=== PATIENT | female | born 1975 | race Caucasian/White ===

== ENCOUNTER 2018-01-02 18:25 | Inpatient (IN) | payer OTHER ==
[~2018-01-02] VITALS: Ht 175.3 cm; Wt 97.1 kg
--- NOTE | 2018-01-02 18:54 | ED GENERAL ADULT ---
History of Present Illness General Chief Complaint: Psychiatric Related Complaint Stated Complaint: +SI Source: patient Exam Limitations: no limitations Vital Signs & Intake/Output Vital Signs & Intake/Output Vital Signs Date Time Temp Pulse Resp B/P B/P Pulse O2 O2 Flow FiO2 Mean Ox Delivery Rate 01/03 2255 98.3 64 104/59 98 Room Air 01/03 2026 98.4 58 128/75 97 Room Air 01/03 1715 98.5 52 121/71 99 Room Air 01/03 1134 98.2 72 19 124/68 96 Room Air 01/03 0835 97.3 58 18 114/65 97 Room Air Room Air 01/03 0605 97.3 52 16 122/73 96 Room Air Allergies Coded Allergies: latex (Severe, DIFFICULTY BREATHING 01/02/18) Reconcile Medications Albuterol Sulfate (Proair Hfa) 90 MCG HFA.AER.AD 2 PUF INH Q4-6 PRN PRN ASTHMA (Reported) Budesonide/Formoterol Fumarate (Symbicort 160-4.5 Mcg Inhaler) 160 MCG-4.5 MCG/ ACTUATION HFA.AER.AD 2 PUF INH BID ASTHMA (Reported) Divalproex Sodium (Divalproex Sodium ER) 500 MG TAB.ER.24H 2 TAB PO QPM SZ ( Reported) Levothyroxine Sodium 125 MCG TABLET 1 TAB PO DAILY THYROID (Reported) Lorazepam 1 MG TABLET 1 TAB PO DAILY ANXIETY (Reported) Meloxicam 15 MG TABLET 1 TAB PO DAILY PAIN (Reported) Sertraline HCl 50 MG TABLET 1 TAB PO DAILY ANXIETY (Reported) Topiramate 50 MG TABLET 2 TAB PO DAILY ANXIETY (Reported) Trazodone HCl 100 MG TABLET 1 TAB PO QPM SLEEP (Reported) Triage Note: PT TO ED FOR C/C OF +SI THOUGHTS WITHOUT PLAN. PT REPORTS SHE SEES AN OUTPATIENT PSYCHIATRIST AND IS NOT HAPPY WITH RECENT MED CHANGE. PT REPORTS NEW DOSE OF DEPAKOTE. OVER THE LAST COUPLE OF DAYS PT HAS BEEN FEELING SUICIDAL, "BUT I KNOW I'M THE KIND OF PERSON WHO WOULD NEVER DO ANYTHING ABOUT IT." PT REPORTS SHE FEELS VERY OUT OF IT AND FEELS "OFF BALANCE." Triage Nurses Notes Reviewed? yes Onset: Gradual Duration: day(s): Timing: constant : No Patient currently breastfeeds: No HPI: 42 y/o female with h/o bipolar disorder presenting with SI. Reports recent manic episodes and feeling "off balance." Saw her outpatient psychiatrist and was started on depakote 3 weeks ago. Reports she has not been taking the full prescribed dose. Now with SI thoughts over the past few days, no plan or attempts. Denies HI. Denies ETOH or drug use. Denies pain or trauma. (Kaelyn Campbell) Past History Travel History Traveled to [place] past 21 day No Medical History Any Pertinent Medical History? 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 No (Kaelyn Campbell) Review of Systems Review of Systems Constitutional: Reports: no symptoms. EENTM: Reports: no symptoms. Respiratory: Reports: no symptoms. Cardiovascular: Reports: no symptoms. GI: Reports: no symptoms. Genitourinary: Reports: no symptoms. Musculoskeletal: Reports: no symptoms. Skin: Reports: no symptoms. Neurological/Psychological: Reports: no symptoms. Hematologic/Endocrine: Reports: no symptoms. Immunologic/Allergic: Reports: no symptoms. (Kaelyn Campbell) Physical Exam Physical Exam General Appearance: well developed/nourished, no apparent distress, alert, awake , comfortable Head: atraumatic, normal appearance Eyes: Bilateral: normal appearance. Neck: normal inspection Respiratory: normal breath sounds, lungs clear Cardiovascular: regular rate/rhythm Gastrointestinal: soft, non-tender Back: normal inspection Extremities: normal inspection Neurologic/Psych: awake, alert, oriented x 3, normal gait, normal mood/affect Skin: intact, normal color, warm/dry Core Measures ACS in differential dx? No CVA/TIA Diagnosis: No Sepsis Present: No Sepsis Focused Exam Completed? No (Kaelyn Campbell) Progress Differential Diagnoses I considered the following diagnoses in my evaluation of the patient: [SI vs depression, low concern for acute steven vs intoxication vs trauma ] Plan of Care: Orders Procedure Date/time Status Continuous Observation Monitor 01/03 1900 Active Continuous Observation Monitor 01/03 1500 Active Continuous Observation Monitor 01/03 1100 Active Continuous Observation Monitor 01/03 0700 Active Current Medications Sig/Anum Start time Last Medication Dose Stop Time Status Admin Divalproex Sodium 1,000 MG QPM 01/03 2100 UNVr 01/03 (Depakote) 2100 Trazodone HCl 100 MG QPM 01/03 2100 UNVr 01/03 (Desyrel) 2100 Budesonide/ 2 PUF BID 01/03 0900 AC 01/03 Formoterol Fumarate 0834 (Symbicort) Levothyroxine Sodium 0.125 MG DAILY 01/03 09 UNVr 01/03 (Synthroid) 0834 Sertraline HCl 50 MG DAILY 01/03 09 UNVr 01/03 (Zoloft) 0834 Topiramate 100 MG DAILY 01/03 09 UNVr 01/03 (Topamax) 0834 Albuterol Sulfate 2 PUF Q4-6 PRN PRN 01/02 2330 AC (Ventolin) Labs unremarkable. UA has WBC, but not clean catch. Pt has no urinary symptoms at this time, therefore will not treat at this time. Culture sent and pending. Pt signed out to eber RODRIGUEZ with crisis consult pending. Initial ED EKG: none (Kaelyn Campbell) Hand-Off Endorsed To: Red Lopez MD Endorsed Time: 0700 Pending: consult (CRISIS) (Cyn RODRIGUEZ,Pedro Luis Rouse) Hand-Off Endorsed To: Aaron Barrett MD Endorsed Time: 1500 Pending: consult (Red Lopez MD) Comments: 01/03/2018 3:10:19 PM patient signed out to me by Dr. Lopez at shift cuff setter overlock. 01/03/2018 11:37:31 PM patient signed out to Dr. Duron at shift cuff setter overlock. (Nena RODRIGUEZ,Aaron Miller) Departure Departure Disposition: STILL A PATIENT Condition: Stable Clinical Impression Primary Impression: Suicidal ideation Secondary Impressions: Bipolar disorder Departure Forms: Customer Survey General Discharge Information (Kaelyn Campbell) PA/SOLAR SYSTEM DESIGNER Co-Sign Statement Statement: ED Attending supervision documentation- [X] I saw and evaluated the patient. I have also reviewed all the pertinent lab results and diagnostic results. I agree with the findings and the plan of care as documented in the PA's/SOLAR SYSTEM DESIGNER's documentation. [X] I have reviewed the ED Record and agree with the PA's/SOLAR SYSTEM DESIGNER's documentation. [] Additions or exceptions (if any) to the PAs/SOLAR SYSTEM DESIGNER's note and plan are summarized below: [] (Pedro Luis Addison MD) PA/SOLAR SYSTEM DESIGNER Co-Sign Statement Statement: ED Attending supervision documentation- [] I saw and evaluated the patient. I have also reviewed all the pertinent lab results and diagnostic results. I agree with the findings and the plan of care as documented in the PA's/SOLAR SYSTEM DESIGNER's documentation. [x] I have reviewed the ED Record and agree with the PA's/SOLAR SYSTEM DESIGNER's documentation. [] Additions or exceptions (if any) to the PAs/SOLAR SYSTEM DESIGNER's note and plan are summarized below: [] (Domi RODRIGUEZ,Lorenzo Reyna) Critical Care Note Critical Care Note Critical Care Time: non-applicable (Kaelyn Campbell) [] Additions or exceptions (if any) to the PAs/SOLAR SYSTEM DESIGNER's note and plan are summarized below: [] (Pedro Luis Addison MD) Critical Care Note Critical Care Note Critical Care Time: non-applicable (Kaelyn Campbell) (Kaelyn Campbell) Hand-Off Endorsed To: Red Lopez MD Endorsed Time: 0700 Pending: consult (CRISIS) (Pedro Luis Addison MD) Hand-Off Endorsed To: Aaron Barrett MD Endorsed Time: 1500 Pending: consult (Red Lopez MD) Comments: 01/03/2018 3:10:19 PM patient signed out to me by Dr. Lopez at shift cuff setter overlock. (Aaron Barrett MD) Departure Departure Disposition: STILL A PATIENT Condition: Stable Clinical Impression Primary Impression: Suicidal ideation Secondary Impressions: Bipolar disorder Departure Forms: Customer Survey General Discharge Information (Kaelyn Campbell) PA/SOLAR SYSTEM DESIGNER Co-Sign Statement Statement: ED Attending supervision documentation- [X] I saw and evaluated the patient. I have also reviewed all the pertinent lab results and diagnostic results. I agree with the findings and the plan of care as documented in the PA's/SOLAR SYSTEM DESIGNER's documentation. [X] I have reviewed the ED Record and agree with the PA's/SOLAR SYSTEM DESIGNER's documentation. [] Additions or exceptions (if any) to the PAs/SOLAR SYSTEM DESIGNER's note and plan are summarized below: [] (Cyn RODRIGUEZ,Pedro Luis Rouse) Critical Care Note Critical Care Note Critical Care Time: non-applicable (Magan LOZANO,Kaelyn)
[2018-01-02 19:10] LABS: ABSOLUTE BASOPHIL COUNT 0 /CUMM (0.0-0.2); ABSOLUTE EOSINOPHIL COUNT 0.1 /CUMM (0.0-0.7); ABSOLUTE GRANULOCYTE CT 7.4 /CUMM (1.4-6.5); ABSOLUTE LYMPH COUNT 2.1 /CUMM (1.2-3.4); ABSOLUTE MONOCYTE COUNT 0.4 /CUMM (0.10-0.60); BASOPHIL % 0.3 % (0.0-2.0); EOSINOPHIL % 1.1 % (0-5); GRANULOCYTE % 73.3 % (42.2-75.2); HEMATOCRIT 40.9 % (37-47); MEAN CORPUSCULAR HGB 29.6 PG (27.0-31.0); MEAN CORPUSCULAR HGB CONC 33.9 G/DL (33.0-37.0); MEAN CORPUSCULAR VOLUME 87.2 FL (81.0-99.0); PLATELET COUNT 280 /CUMM (130-400); RBC DISTRIBUTION WIDTH 13.5 % (11.5-14.5); RED BLOOD CELL CT 4.69 /CUMM (4.20-5.40)
[2018-01-02] MEDS ORDERED: TOPIRAMATE50 M1 PO (20:40)
[2018-01-02] MEDS ORDERED: MELOXICAM15 M1 PO (20:41)
[2018-01-02] MEDS ORDERED: SERTRALINE HCL50 MG PO (20:41)
[2018-01-02] MEDS ORDERED: TRAZODONE HCL100 M1 PO (20:41)
[2018-01-02] MEDS ORDERED: PROAIR HFA8.5 GM INH (20:42)
[2018-01-02] MEDS ORDERED: LEVOTHYROXINE125 MCG PO (20:42)
[2018-01-02] MEDS ORDERED: LORAZEPAM1 M1 PO (20:42)
[2018-01-02] MEDS ORDERED: DIVALPROEX SOD500 M3 PO (20:43)
[2018-01-02] MEDS ORDERED: SYMBICORT 16010.2 GM INH (20:57)
--- NOTE | 2018-01-03 10:50 | ED PSYCH CRISIS CONSULTATION ---
See Addendum Crisis Consult Basic Assessment Date of Consult: 01/03/18 Responsible Person/Accompanied By: self Insurance Authorization: Insurance #1: Insurance name: [employer] Phone number: Policy number: [id number] Group number: [id number] Authorization number: ED Provider: Patient's ED Provider: Kaelyn Campbell Primary Care Physician: Patient's PCP: Alexsandra Erwin APRN PCP's Current Psychiatrist: MD Cedrick Price Chief Complaint: Psychiatric Related Complaint Patient's Quote: "My Meds are not right,I was feeling SI;jumping off my balcony. "tearful Present Illness: Pt is 42 y.o. D/W/F with a long a hx of bipolar with psychotic features with multiple hospitalization since a break in college. Pt comes to the ED asking for help because she feels her meds are not right and she is being coming ill. Pt reports she was very frightened by a SI and it's intensity. Her thoughts were of throwing herself off her 6th floor balcony Sometimes I imagine myself flying off the balcony, I wondered if I would be or in a wheelchair. Pt reported her current male friend was able to provide limited support but she has no other supports. Pt feels her recent meds changes are not helping and she needs better meds and an inpt stay for stabilization and safety. Pt reports she has been driving and not feeling right, she reports she knows she is not right because people are beeping at her. Pt reports spending money and maxing her credit cards. She is saying inappropriate/ disrespectful things at work and in stores to shoppers and staff. Pt is getting irritable and agitated with strangers while out in the community. Decrease sleep and appetite. med noncompliant taking her own lower dose currently but not liking meds in general at times. Sw spoke with pt's mother in [facility] [phone], reports this is the first time pt has asked for help in her 14 hospitalizations for out of touch with reality, paranoid and delusional, manic behavior. She reports her dtr is having an increasingly having a difficult time in the community and has very limited local support. Mother is aware of most of the same things pt is reporting to . Pt 's parents are paying many of pt's bills including rent and electricity. Pt's insurance is throught mother's insurance as pt is disabled and has a hx of SSD. Pt seems to have a paranoia or phobia around her mail and not opening things. Pt's mother notes pt has had an increase in ETOH use very recently as well. Pt had a hx of ETOH use in her younger years and on and off. Mother does not report poly substance abuse hx but pt reports hx of cannabis and cocaine with rare use of cocaine. Last use was within past few months with an old friend prior was many years. Pt has a hx of AA. Pt is considering changing her current psych providers( MD [facility] and Lizeth Chow [place] therapist) but mother feels they are very good. Pt reports taking trazadone and PRN Ativan for sleep. Recently adding ETOH about 2 drinks to help her sleep. Pt recently started Depakote for mood stabilization for steven sx turning to mix. She was taking of the prescribed dose prescribed for about 3 weeks. She was also started on Zoloft and has taken meds for 1-2 days. Pt takes Haldol PRN for racing thoughts and has taken it twice recently. Pt has been on topomax for some time as well as other psych meds. Pt reports 50 lb weight loss from working on her diet and exercising since Apr. She reports sometimes exercising shifts her into steven or starts with steven. Pt also noting menopause has started as well . Two periods this year, mother confirms her menopause began at 42 as well. 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 Pt presents resting on stretcher and is being monitored by a sitter. She is pleasant and cooperative, but did loose her phone privileges last night for fighting with her mother. Pt's speech is not pressured, thoughts are organized. She is able to make eye contact and verbalize her fear of SI and getting as sick as she has int the past. Tearful at times. Difficulty with sleep, decreasing judgment and insight. Denies HI/AH/VH and there is no overt sign or sx of psychosis. Pt's utox is negative for Drugs. Pt discussed with MD Carlotta who agrees with bed research for to inpt psych. Pt to be voluntary. Patient's Address: [address] [place] [address] Other Phone Number: Who Do You Live With? Patient/Self Family/Informants Interviewed: spoke with mother who lives in [place] Allergies - Coded Allergies: latex (Severe, DIFFICULTY BREATHING 01/02/18) Current Medications - Scheduled Medications Budesonide/Formoterol Fumarate (Symbicort 160-4.5 Mcg Inhaler) 160 MCG-4.5 MCG/ ACTUATION HFA.AER.AD 2 PUF INH BID ASTHMA #10 (Reported) Entered as Reported by Lizeth Barriga on 01/02/182056 Divalproex Sodium (Divalproex Sodium ER) 500 MG TAB.ER.24H 2 TAB PO QPM SZ #30 (Reported) Entered as Reported by Lizeth Barriga on 01/02/182042 Levothyroxine Sodium 125 MCG TABLET 1 TAB PO DAILY THYROID #90 (Reported) Entered as Reported by Lizeth Barriga on 01/02/182041 Lorazepam 1 MG TABLET 1 TAB PO DAILY ANXIETY #30 (Reported) Entered as Reported by Lizeth Barrgia on 01/02/182041 Meloxicam 15 MG TABLET 1 TAB PO DAILY PAIN #15 (Reported) Entered as Reported by Lizeth Barriga on 01/02/182040 Sertraline HCl 50 MG TABLET 1 TAB PO DAILY ANXIETY #30 (Reported) Entered as Reported by Lizeth Barriga on 01/02/182040 Topiramate 50 MG TABLET 2 TAB PO DAILY ANXIETY #90 (Reported) Entered as Reported by Lizeth Barriga on 01/02/182039 Trazodone HCl 100 MG TABLET 1 TAB PO QPM SLEEP #30 (Reported) Entered as Reported by Lizeth Barriga on 01/02/182040 Scheduled PRN Medications Albuterol Sulfate (Proair Hfa) 90 MCG HFA.AER.AD 2 PUF INH Q4-6 PRN PRN ASTHMA #8 (Reported) Entered as Reported by Lizeth Barriga on 01/02/182041 Laboratory Results: Laboratory Tests 01/02/182114: Urine Opiates Screen < 100, Methadone Screen < 40, Barbiturate Screen < 60, Ur Phencyclidine Scrn < 6.00, Amphetamines Screen < 100, U Benzodiazepines Scrn < 85, Urine Cocaine Screen < 50, Urine Cannabis Screen < 5.00, Urinalysis LIGHT H , Urine Color YEL, Urine Clarity CLEAR, Urine pH 6.5, Ur Specific [place] 1.025, Urine Protein NEG, Urine Ketones NEG, Urine Nitrite NEG, Urine Bilirubin NEG, Urine Urobilinogen 0.2, Ur Leukocyte Esterase MOD H, Ur Microscopic SEDIMENT EXAMINED, Urine RBC 3-5, Urine WBC 10-15 H, Ur Epithelial Cells MOD H, Urine Bacteria FEW H, Urine Hemoglobin MOD H, Urine Glucose NEG, Urine Test NEGATIVE 01/02/181901: Anion Gap 12, Estimated GFR > 60, BUN/Creatinine Ratio 22.2, Glucose 133 H, Calcium 9.2, Total Bilirubin 0.3, AST 28, ALT 41, Alkaline Phosphatase 58, Total Protein 7.1, Albumin 3.9, Globulin 3.2, Albumin/Globulin Ratio 1.2, TSH 1.490, Thyroxine (T4) 9.1, CBC w Diff NO MAN DIFF REQ, RBC 4.69, MCV 87.2, MCH 29.6, MCHC 33.9, RDW 13.5, MPV 9.0, Gran % 73.3, Lymphocytes % 21.1, Monocytes % 4.2, Eosinophils % 1.1, Basophils % 0.3, Absolute Granulocytes 7.4 H, Absolute Lymphocytes 2.1, Absolute Monocytes 0.4, Absolute Eosinophils 0.1, Absolute Basophils 0, Valproic Acid 20.2 L, Serum Alcohol < 10.0 Microbiology 01/02 2115 URINE ROUT: Urine Culture - RECD Past History Past Medical History Neurological: NONE EENT: NONE Cardiovascular: NONE Respiratory: NONE Gastrointestinal: NONE Hepatic: MONO Renal: NONE Musculoskeletal: NONE Psychiatric: bipolar disease Endocrine: NONE Blood Disorders: NONE Cancer(s): NONE 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 coke rare ) First Use high school Last Used cocaine past 3 months once How much used/taken little How often raely cocaine Substance Abuse Treatment Substance Abuse Treatment Past Substance Abuse [place] Yes (AA) Inpatient Treatment No Location of Treatment [place] Reason for Treatment ETOH and cannbis , cocaine and bipolar Response to Treatment did well with iop and AA Comments: Cuurent use of ETOH is 1-2 drinks daily in the evening. some as much as 5 drinks. I need to go back to AA Current Mental Status Mental Status Orientation: Person, Place, Situation Affect: Anxious, Constricted, Depressed, Flat, Lonely (tearful, tawlking about SI ) Speech: Normal Neuro-vegetative: Concentration Poor, Energy Decreased, Hyperactivity (sleeping with meds and ETOH ), Sleep Disturbance (reports currently mixed/depres) Appearance Appearance- Dress/Hygiene: hospital clothing Behaviors Thought Process: racing thoughts Thought Content: Paranoid (some,not as bad as it has been) Memory: WNL Insight: Fair (steven) SI/HI Risk Assessment Past Suicidal Ideation/Attempts Yes (one prior admission for ) Current Suicidal Ideation/Att Yes Past Homicidal Ideation/Att: No Current Homicidal Ideation/Attempts No Degree of Intent: None (jump of balcony, told bf), Thoughts/No Intent (hopes no impluse) Danger To: Others (driving;not feeling "right"), Self Gravely Disabled: Lack of Insight, Poor Impulse Control, Poor Judgment (starting to demonstrate lack), decreasing insight,judgment,impluse tolerance e tolerance of others Risk Factors: high anxiety/distress, SA/MH hospitalized, substance abuse, isolate/no social support, poor impulse control, lives alone, limited support, med mood and changes Lethality Ratin PTSD Checklist PTSD Score: PTSD Score: Response Value Disturbing memories,thoughts,images of stressful experience? Not at all 1 Disturbing dreams of stressful experience from past? Not at all 1 Suddenly acting/feeling as if reliving stressful experience? Not at all 1 Unpleasant feeling when reminded of stressful experience? Not at all 1 Physical reactions when reminded of stressful experience? Not at all 1 Avoid thinking/talking of stressful exp. to avoid reactions? Not at all 1 Avoid activities/situations that remind of stressful exp.? Not at all 1 Trouble remembering important parts of stressful experience? Not at all 1 Loss of interest in things that you used to enjoy? Not at all 1 Feeling distant or cut off from other people? Not at all 1 Feeling emotionally numb/unable to love those close to you? Not at all 1 Feeling as if your future will somehow be cut short? Not at all 1 Trouble falling or staying asleep? Not at all 1 Feeling irritable or having angry outbursts? Not at all 1 Having difficulty concentrating? Not at all 1 Being super alert or watchful on guard? Not at all 1 Feeling jumpy or easily startled? Not at all 1 Total 17 ED Management Sitter: Yes Restraints: No DSM5/PS Stressors/Medical Prob Diagnosis' (DSM 5, Stressors, Medical): Bipolar 1, ETOH use disorder, thyroid disorder and menapause Current GAF: 25 Comments: Pt with SI seeing her self flying off a building. Pt with mood instabilty. Pt with increasingly impaired judgment, insight, diificulty with sleep, irritability,safety awareness- agitation with strangers. increase ETOH use. Recently meds changes. Pt denies HI/AH/VH. some paranoia reported. parents concerned. Departure Disposition Psych Medical Clearance Date: 01/02/18 Referrals Alexsandra Erwin APRN (PCP/Family)
--- NOTE | 2018-01-03 13:29 | ED PSY CRISIS COLLATERAL NOTE ---
Collateral Note Collateral Note Family/Inform/Aaron Contacts: spoke with pt's mother. see Assessment message left for pt's psychiatrist. Sangeetha Parsons MD in [place] [phone] reported visit to ED and asked for a return call. Sw spoke with who agrees with pt admit to psych inpt unit somewhere. he saw pt yesterday and asked her to ocme back next Tuesday due to her mood instability and ETOH use. Agrees with dx and recent Depakote addition. notes med noncompliance and tries to accomandate pt's meds request to help with med complaince.
--- NOTE | 2018-01-04 11:35 | IP CRISIS DIAG ASSESS PSYCH ---
Diagnostic Assessment Basic Assessment Insurance Authorization: Insurance #1: Insurance name: [employer] Phone number: Policy number: [id number] Group number: [id number] Authorization number: [id number] approved 3 days Gray will call on Tuesday Primary Care Physician: Patient's PCP: Alexsandra Erwin APRN PCP's Patient's Quote: "My Meds are not right,I was feeling SI;jumping off my balcony. "tearful Present Illness: Pt is 42 y.o. D/W/F with a long a hx of bipolar with psychotic features with multiple hospitalization since a break in college. Pt comes to the ED asking for help because she feels her meds are not right and she is being coming ill. Pt reports she was very frightened by a SI and it's intensity. Her thoughts were of throwing herself off her 6th floor balcony Sometimes I imagine myself flying off the balcony, I wondered if I would be or in a wheelchair. Pt reported her current male friend was able to provide limited support but she has no other supports. Pt feels her recent meds changes are not helping and she needs better meds and an inpt stay for stabilization and safety. Pt reports she has been driving and not feeling right, she reports she knows she is not right because people are beeping at her. Pt reports spending money and maxing her credit cards. She is saying inappropriate/ disrespectful things at work and in stores to shoppers and staff. Pt is getting irritable and agitated with strangers while out in the community. Decrease sleep and appetite. med noncompliant taking her own lower dose currently but not liking meds in general at times. George spoke with pt's mother in [place] [phone], reports this is the first time pt has asked for help in her 14 hospitalizations for out of touch with reality, paranoid and delusional, manic behavior. She reports her dtr is having an increasingly having a difficult time in the community and has very limited local support. Mother is aware of most of the same things pt is reporting to george. Pt 's parents are paying many of pt's bills including rent and electricity. Pt's insurance is throught mother's insurance as pt is disabled and has a hx of SSD. Pt seems to have a paranoia or phobia around her mail and not opening things. Pt's mother notes pt has had an increase in ETOH use very recently as well. Pt had a hx of ETOH use in her younger years and on and off. Mother does not report poly substance abuse hx but pt reports hx of cannabis and cocaine with rare use of cocaine. Last use was within past few months with an old friend prior was many years. Pt has a hx of AA. Pt is considering [facility] her [facility]) but mother feels they are very good. Pt reports taking trazadone and PRN Ativan for sleep. Recently adding ETOH about 2 drinks to help her sleep. Pt recently started Depakote for mood stabilization for steven sx turning to mix. She was taking of the prescribed dose prescribed for about 3 weeks. She was also started on Zoloft and has taken meds for 1-2 days. Pt takes Haldol PRN for racing thoughts and has taken it twice recently. Pt has been on topomax for some time as well as other psych meds. Pt reports 50 lb weight loss from working on her diet and exercising since Apr. She reports sometimes exercising shifts her into steven or starts with steven. Pt also noting menopause has started as well . Two periods this year, mother confirms her menopause began at 42 as well. 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 Pt presents resting on stretcher and is being monitored by a sitter. She is pleasant and cooperative, but did loose her phone privileges last night for fighting with her mother. Pt's speech is not pressured, thoughts are organized. She is able to make eye contact and verbalize her fear of SI and getting as sick as she has int the past. Tearful at times. Difficulty with sleep, decreasing judgment and insight. Denies HI/AH/VH and there is no overt sign or sx of psychosis. Pt's utox is negative for Drugs. Pt discussed with MD Carlotta who agrees with bed research for to inpt psych. Pt to be voluntary. Patient's Address: [address] [place] [address] Other Phone Number: Who Do You Live With? Patient/Self Feel Safe Where You Live? Yes Feel Safe in Your Relationship Yes Marital Status: Do You Have Children? No Primary Language? Upper Sorbian Language(s) Spoken At Home: Upper Sorbian Family/Informants Interviewed: spoke with mother who lives in [place] Allergies - Coded Allergies: latex (Severe, DIFFICULTY BREATHING 01/02/18) Current Medications - Scheduled Medications Budesonide/Formoterol Fumarate (Symbicort 160-4.5 Mcg Inhaler) 160 MCG-4.5 MCG/ ACTUATION HFA.AER.AD 2 PUF INH BID ASTHMA #10 (Reported) Entered as Reported by Lizeth Barriga on 01/02/182056 Divalproex Sodium (Divalproex Sodium ER) 500 MG TAB.ER.24H 2 TAB PO QPM SZ #30 (Reported) Entered as Reported by Lizeth Barriga on 01/02/182042 Levothyroxine Sodium 125 MCG TABLET 1 TAB PO DAILY THYROID #90 (Reported) Entered as Reported by Lizeth Barriga on 01/02/182041 Lorazepam 1 MG TABLET 1 TAB PO DAILY ANXIETY #30 (Reported) Entered as Reported by Lizeth Barriga on 01/02/182041 Meloxicam 15 MG TABLET 1 TAB PO DAILY PAIN #15 (Reported) Entered as Reported by Lizeth Barriga on 01/02/182040 Sertraline HCl 50 MG TABLET 1 TAB PO DAILY ANXIETY #30 (Reported) Entered as Reported by Lizeth Barriga on 01/02/182040 Topiramate 50 MG TABLET 2 TAB PO DAILY ANXIETY #90 (Reported) Entered as Reported by Lizeth Barriga on 01/02/182039 Trazodone HCl 100 MG TABLET 1 TAB PO QPM SLEEP #30 (Reported) Entered as Reported by Lizeth Barriga on 01/02/182040 Scheduled PRN Medications Albuterol Sulfate (Proair Hfa) 90 MCG HFA.AER.AD 2 PUF INH Q4-6 PRN PRN ASTHMA #8 (Reported) Entered as Reported by Lizeth Barriga on 01/02/182041 Consequences of Psych Med Use: pt has recently started depakote and zoloft Toxicology Screen Completed? Yes Results: negative Symptoms of Use: pt reports recent increase in etoh use; past hx of problematic etoh, marijuana and cocaine Past History Past Surgical History Surgical History SHOULDER Abuse/Trauma History Trauma History/Current Trauma: Denies Legal History Current Legal Status: none Psychosocial History Strengths/Capabilities: was on medicare disability but is now working , 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 Psychiatric Treatment History Psych Treatment Psychiatric Treatment Yes Inpatient Treatment Yes Outpatient Treatment Yes Location of Treatment private [facility] Reason for Treatment bipolar Dates of Treatment ongoing since childhood Response to Treatment periods of being stable Diagnosis by History: bipolar etoh use disorder Risk Factors: high anxiety/distress, SA/MH hospitalized, substance abuse, isolate/no social support, poor impulse control, lives alone, limited support, med mood and changes Substance Use/Abuse History Drug Use/Abuse minimum 12mo Hx Substances Used/Abused Yes Substance Used/Abused Cocaine (ativan prescrib. coke rare ) First Use high school Last Used cocaine past 3 months once How much used/taken little How often raely cocaine Substance Abuse Treatment Substance Abuse Treatment Past Substance Abuse [place] Yes (AA) Inpatient Treatment No Location of Treatment [place] Reason for Treatment ETOH and cannbis , cocaine and bipolar Response to Treatment did well with iop and AA Education History Highest Level of Education: some college Preferred Learning Style: visual, auditory, experiential Current Mental Status Mental Status Orientation: Person, Place, Situation Affect: Anxious, Constricted, Depressed, Flat, Lonely (tearful, tawlking about SI ) Speech: Normal Neuro-vegetative: Concentration Poor, Energy Decreased, Hyperactivity (sleeping with meds and ETOH ), Sleep Disturbance (reports currently mixed/depres) Appearance Appearance- Dress/Hygiene: hospital clothing Behaviors Thought Process: racing thoughts Thought Content: Paranoid (some,not as bad as it has been) Memory: WNL Insight: Fair (steven) SI/HI Risk Assessment - Minimum 6mo History- Past Suicidal Ideation/Attempts Yes (one prior admission for ) Current Suicidal Ideation/Att Yes Past Homicidal Ideation/Att: No Current Homicidal Ideation/Attempts No Degree of Intent: None (jump of balcony, told bf), Thoughts/No Intent (hopes no impluse) Danger To: Others (driving;not feeling "right"), Self Gravely Disabled: Lack of Insight, Poor Impulse Control, Poor Judgment (starting to demonstrate lack), decreasing insight,judgment,impluse tolerance e tolerance of others Risk Factors: high anxiety/distress, SA/MH hospitalized, substance abuse, isolate/no social support, poor impulse control, lives alone, limited support, med mood and changes Lethality Ratin Needs/Init TX Plan/Goals: Psychiatric Evaluation Medication Assessment Individual, Family and Group Meeting Coordinated Discharge Plan AUDIT-C Questionnaire: AUDIT-C Questionnaire: Response Value ETOH use in the past year 4 or more per week 4 # drinks typical/day 3 or 4 1 6 or > drinks per occasion Monthly 2 Total 7 DSM5/PS Stressors/Medical Prob Diagnosis' (DSM 5, Stressors, Medical): Bipolar 1, ETOH use disorder, thyroid disorder and menapause Current GAF: 25 Comments: Pt with SI seeing her self flying off a building. Pt with mood instabilty. Pt with increasingly impaired judgment, insight, diificulty with sleep, irritability,safety awareness- agitation with strangers. increase ETOH use. Recently meds changes. Pt denies HI/AH/VH. some paranoia reported. parents concerned.
[2018-01-04 14:00] VITALS: BP 115/59
--- NOTE | 2018-01-04 16:25 | History & Physical ---
General Information and HPI MD Statement: I have seen and personally examined ABHINAV CANCHOLA and documented this H&P. The patient is a 42 year old F who presented with a patient stated chief complaint of feeling "off balance", recent manicepisodes, depression and suicidal ideation. Source of Information: patient, old records Exam Limitations: no limitations History of Present Illness: The patient is a 42 yo female with h/o hypothyroidism, asthma, chronic back pain and bipolar disorder and recent manic episodes (started on Depakote 3 weeks ago ) who presented in the ED with depression and suicidal ideation over past several days. At the time of my exam the patient was cooperative and calm. She had no other physical complaints except fatigue. She stated she was diagnosed 2 weeks ago with "mononucleosis" by a homeopathic physician. Stated a regular MD had done a "mono" test that was negative, however the homeopathic physician did other tests that indicated mono (?EBV titers). She denied any cervical adenopathy or abdominal pain. She did state that her "urinalysis is off" and she has had urinary frequency w/o dysuria. Allergies/Medications Allergies: Coded Allergies: latex (Severe, DIFFICULTY BREATHING 01/02/18) Home Med list Albuterol Sulfate (Proair Hfa) 90 MCG HFA.AER.AD 2 PUF INH Q4-6 PRN PRN ASTHMA (Reported) Budesonide/Formoterol Fumarate (Symbicort 160-4.5 Mcg Inhaler) 160 MCG-4.5 MCG/ ACTUATION HFA.AER.AD 2 PUF INH BID ASTHMA (Reported) Divalproex Sodium (Divalproex Sodium ER) 500 MG TAB.ER.24H 2 TAB PO QPM SZ ( Reported) Levothyroxine Sodium 125 MCG TABLET 1 TAB PO DAILY THYROID (Reported) Lorazepam 1 MG TABLET 1 TAB PO DAILY ANXIETY (Reported) Meloxicam 15 MG TABLET 1 TAB PO DAILY PAIN (Reported) Sertraline HCl 50 MG TABLET 1 TAB PO DAILY ANXIETY (Reported) Topiramate 50 MG TABLET 2 TAB PO DAILY ANXIETY (Reported) Trazodone HCl 100 MG TABLET 1 TAB PO QPM SLEEP (Reported) Compliance With Home Meds: GOOD Past History Travel History Traveled to [place] past 21 day No Medical History Blood Transfusion Hx: No Neurological: NONE EENT: NONE Cardiovascular: NONE Respiratory: asthma Gastrointestinal: NONE Hepatic: MONO Renal: NONE Musculoskeletal: NONE, chronic back pain Psychiatric: bipolar disease Endocrine: hypothyroidism Blood Disorders: NONE Cancer(s): NONE 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 FATHER (ALIVE & WELL). BROTHER (ADDICTION PROBLEMS). GRANDMOTHER (ANEURYSM). . GRANDFATHER (EARLY CAD). . Psychosocial History Where do you live? Home Services at Home: None Primary Language: Kinyarwanda Smoking Status: Never Smoked ETOH Use: occasional use Illicit Drug Use: denies illicit drug use Functional Ability ADLs Independent: dressing, eating, toileting, bathing. Ambulation: independent Review of Systems Review of Systems Constitutional: Reports: malaise. EENTM: Denies: no symptoms. Cardiovascular: Denies: no symptoms. Respiratory: Reports: wheezing (OCCASIONALLY USES NEBS). GI: Denies: no symptoms. Genitourinary: Reports: frequency. Musculoskeletal: Reports: back pain (CHRONIC). Skin: Denies: no symptoms. Neurological/Psychological: Reports: anxiety, depressed, emotional problems. Hematologic/Endocrine: Reports: other (HYPOTHYROID). Denies: no symptoms. Immunologic/Allergic: Denies: no symptoms. Post Menopausal: No Exam & Diagnostic Data Last 24 Hrs of Vital Signs/I&O Vital Signs Date Time Temp Pulse Resp B/P B/P Pulse O2 O2 Flow FiO2 Mean Ox Delivery Rate 01/04 1934 98.6 74 104/69 01/04 1626 60 120/65 01/04 1400 95.6 68 115/59 01/04 1044 97.9 72 16 106/71 96 Room Air 01/04 0816 97.3 64 18 107/64 98 Room Air 01/04 0630 97.9 65 18 101/68 99 Room Air Intake & Output 01/05 0800 01/05 0000 01/04 1600 Intake Total Output Total Balance Patient 214 lb Weight Physical Exam General Appearance Alert, Oriented X3, Cooperative, No Acute Distress Skin No Rashes, No Breakdown, No Significant Lesion HEENT Atraumatic, PERRLA, EOMI, Mucous Membr. moist/pink Neck Supple, No JVD, No thryomegaly, +2 Carotid Pulse wo Bruit, No LAD (NO ADENOPATHY) Cardiovascular Regular Rate, Normal S1, Normal S2, No Murmurs Lungs Clear to Auscultation, Normal Air Movement Abdomen Normal Bowel Sounds, Soft, No Tenderness, No Hepatospenomegaly, No Masses Neurological Exam Findings: Normal Gait, Normal Speech, Strength at 5/5 X4 Ext, Normal Tone, Sensation Intact, Cranial Nerves 3-12 NL, Reflexes 2+ Cranial Nerves II through XII: INTACT Extremities No Clubbing, No Cyanosis, No Edema, Normal Pulses, No Tenderness/ Swelling Vascular Normal Pulses, Pulses Symmetrical Last 24 Hrs of Labs/Zane: Laboratory Tests 01/02/185: Urine Opiates Screen < 100, Methadone Screen < 40, Barbiturate Screen < 60, Ur Phencyclidine Scrn < 6.00, Amphetamines Screen < 100, U Benzodiazepines Scrn < 85, Urine Cocaine Screen < 50, Urine Cannabis Screen < 5.00, Urinalysis LIGHT H , Urine Color YEL, Urine Clarity CLEAR, Urine pH 6.5, Ur Specific [place] 1.025, Urine Protein NEG, Urine Ketones NEG, Urine Nitrite NEG, Urine Bilirubin NEG, Urine Urobilinogen 0.2, Ur Leukocyte Esterase MOD H, Ur Microscopic SEDIMENT EXAMINED, Urine RBC 3-5, Urine WBC 10-15 H, Ur Epithelial Cells MOD H, Urine Bacteria FEW H, Urine Hemoglobin MOD H, Urine Glucose NEG, Urine Test NEGATIVE 01/02/18 1902: Anion Gap 12, Estimated GFR > 60, BUN/Creatinine Ratio 22.2, Glucose 133 H, Calcium 9.2, Total Bilirubin 0.3, AST 28, ALT 41, Alkaline Phosphatase 58, Total Protein 7.1, Albumin 3.9, Globulin 3.2, Albumin/Globulin Ratio 1.2, TSH 1.490, Thyroxine (T4) 9.1, CBC w Diff NO MAN DIFF REQ, RBC 4.69, MCV 87.2, MCH 29.6, MCHC 33.9, RDW 13.5, MPV 9.0, Gran % 73.3, Lymphocytes % 21.1, Monocytes % 4.2, Eosinophils % 1.1, Basophils % 0.3, Absolute Granulocytes 7.4 H, Absolute Lymphocytes 2.1, Absolute Monocytes 0.4, Absolute Eosinophils 0.1, Absolute Basophils 0, Valproic Acid 20.2 L, Serum Alcohol < 10.0 Microbiology 01/02 2115 URINE ROUT: Urine Culture - RES Assessment/Plan Assessment: Impression/Plan: #Depression/Suicidal Ideation- in patient with known Bipolar disorder recently begun on Depakote as OP. Plan: Admit to [facility]. Psychiatry to determine medical intervention. #Urinary Frequency- no dysuria- had some WBC and leuk esterase positive. Plan: Check urine C&S and follow symptoms to determine if Rx needed. #Hypothyroid- on Levothyroxine. Plan: Continue Levothyroxine. #Asthma- lungs clear at present. Does use occasional Nebs at home. Plan: Continue Symbicort and follow symptoms- may need nebs (says uses 1/week at home). #"Mononucleosis"- as above, the patient states mono test was negative with medical MD as OP, however homeopathic MD says other test positive. She has no cervical adenopathy or splenomegaly on exam. suspect had some EBV titers that were positive, however exam not suggestive of active mononucleosis. Plan: Will follow symptoms. No Rx needed. As Ranked By This Provider Problem List: 1. Bipolar disorder 2. Suicidal ideation 3. Hypothyroid 4. Asthma 5. Chronic back pain 6. Urinary frequency Miscellaneous Miscellaneous Documentation Attending Case Discussed With: Vianney RODRIGUEZ,[place]ander Primary Care Physician: Alexsandra Erwin APRN Patient sees these Specialists NONE Level of Patient Care: [facility] Consults Needed: Consulting Physician: NONE Attending MD Review Statement Attending Statement Attending MD Statement: examined this patient, reviewed EMR data (avail), discussed with nursing, amended to note Attending Assessment/Plan: As above.
[2018-01-04 16:26] VITALS: BP 120/65
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
[2018-01-04 19:34] VITALS: BP 104/69
--- NOTE | 2018-01-05 02:55 | CPS PROVIDER INIT ASMT PSYCH ---
Psychiatric Admission Solid Fiber Paster Operator's Note Reviewed: Yes Patient Seen and Examined: Yes Identifying Information: Pt is 42 y.o. D/W/F Chief Complaint: "My Meds are not right, I was feeling SI; jumping off my balcony." tearful Reaction to Hospitalization: The patient was admitted voluntarily History of Present Illness Onset of Illness: Patient was admitted voluntarilywith a long a hx of bipolar with psychotic features with multiple hospitalizations since a break in college. Circumstances Leading to Admission: Pt comes to the ED asking for help because she feels her meds are not right and she is being coming ill. Pt reports she was very frightened by a SI and it 's intensity. Her thoughts were of throwing herself off her 6th floor balcony Sometimes I imagine myself flying off the balcony, I wondered if I would be or in a wheelchair. Pt reported her current male friend was able to provide limited support but she has no other supports. Pt feels her recent meds changes are not helping and she needs better meds and an inpt stay for stabilization and safety. Pt reports she has been driving and not feeling right , she reports she knows she is not right because people are beeping at her. Pt reports spending money and maxing her credit cards. She is saying inappropriate/ disrespectful things at work and in stores to shoppers and staff. Pt is getting irritable and agitated with strangers while out in the community. Decrease sleep and appetite. med noncompliant taking her own lower dose currently but not liking meds in general at times. George spoke with pt's mother in [facility] [phone], reports this is the first time pt has asked for help in her 14 hospitalizations for out of touch with reality, paranoid and delusional, manic behavior. She reports her dtr is having an increasingly having a difficult time in the community and has very limited local support. Mother is aware of most of the same things pt is reporting to george. Pt 's parents are paying many of pt's bills including rent and electricity. Pt's insurance is throught mother's insurance as pt is disabled and has a hx of SSD. Pt seems to have a paranoia or phobia around her mail and not opening things. Pt's mother notes pt has had an increase in ETOH use very recently as well. Pt had a hx of ETOH use in her younger years and on and off. Mother does not report poly substance abuse hx but pt reports hx of cannabis and cocaine with rare use of cocaine. Last use was within past few months with an old friend prior was many years. Pt has a hx of AA. Pt is considering changing her current psych providers( MD Cedrick Price and Michael Townsend therapist) but mother feels they are very good. Pt reports taking trazadone and PRN Ativan for sleep. Recently adding ETOH about 2 drinks to help her sleep. Pt recently started Depakote for mood stabilization for steven sx turning to mix. She was taking of the prescribed dose prescribed for about 3 weeks. She was also started on Zoloft and has taken meds for 1-2 days. Pt takes Haldol PRN for racing thoughts and has taken it twice recently. Pt has been on topomax for some time as well as other psych meds. Pt reports 50 lb weight loss from working on her diet and exercising since Apr. She reports sometimes exercising shifts her into steven or starts with steven. Pt also noting menopause has started as well . Two periods this year, mother confirms her menopause began at 42 as well. 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 Pt presents resting on stretcher and is being monitored by a sitter. She is pleasant and cooperative, but did loose her phone privileges last night for fighting with her mother. Problem(s) Justifying Need for Admission: Thoughts of suicide Past Psychiatric History Past Diagnosis(es)- if any: Bipolar disorder Past Precipitating Factors- if any: Possible alcohol abuse. - Include inpatient and outpatient treatment Treatment History: The patient has had 14 different hospitalizations over the years. Pt is considering changing her current psych providers ( MD Cedrick Price and Michael Townsend therapist) History of Suicide Attempts or Gestures Crisis evaluation indicated 1 history of suicide attempt but there were no details given Substance Abuse History: Past history of alcohol abuse and some cocaine use. She denied recent use of alcohol or other drugs. Allergies: Coded Allergies: latex (Severe, DIFFICULTY BREATHING 01/02/18) Home Med List: The patient was just recently started on Depakote and Zoloft she reported that before that she was only on Topamax and trazodone at bedtime - Include any medical condition(s) that may - impact the patient's recovery/remission Past Medical History: Hypothyroidism Past History Medical History Neurological: NONE EENT: NONE Cardiovascular: NONE Respiratory: asthma Gastrointestinal: NONE Hepatic: MONO Renal: NONE Musculoskeletal: NONE, chronic back pain Psychiatric: bipolar disease Endocrine: hypothyroidism Blood Disorders: NONE Cancer(s): NONE SURVEY CREW CHIEF/Reproductive: NONE History of MRSA: No History of VRE: No History of CDIFF: No Isolation History: Standard Surgical History Surgical History: SHOULDER Psychiatric Family/Social Hx Family History Psychiatric Illness: There is a family history of bipolar disorder Substance Use: Not explored Suicides: No family history of suicides Social History Living Situation: Patient lives independently Significant Relationships (family/friends): As a good relationship with her mother Education: 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 - #1 Recognizing dangerous situations. - #2 Coping Skills. - #3 Basic information about quitting. Status of Tobacco Cessation Counseling: Not Applicable Cessation Med Status Not Applicable Alcohol Screening - ETOH screen POS if BAL >=80 or Audit-C>= M4/F3 Audit-C Score from Diag Assess: 7 Blood Alcohol Level: Laboratory Tests 01/02 1902 Toxicology Serum Alcohol (<10 MG/DL) < 10.0 Alcohol Use Screening Results: Pos per Audit C &/or BAL - If ETOH counseling indicated - the following topics are required. - #1 Express concern about the patient's - drinking at unhealthy levels, include informing - of national norms for moderate drinking: - men <= 14 drinks/week, max 4 drinks/occasion - women <= 7 drinks/week, max 3 drinks/occasion - #2 Providing feedback, including linking alcohol to - negative physical effects (liver injury, hypertension) - negative emotional effects (relationship problems and - depression) - negative occupational consequences (reduced work - performance) - #3 Advising the patient to abstain from alcohol or - to drink below national norms for moderate drinking - (as listed above). Status of ETOH Use Counseling: #1, #2 AND #3 Completed. Metabolic Screening - Screen if on a Neuroleptic Medication - Metabolic screening should include: - Blood Pressure, BMI, Glucose or Hgb A1c, & a - Lipid profile from within the past 365 days. Metabolic Screening ([X]) Not Applicable, patient not on a neuroleptic. Exam and Plan Mental Status Examination Ambulation Status: Steady gait Appearance: Unremarkable appearance Attitude towards examiner: Calm and cooperative Psychomotor activity: Normal psychomotor activity Behavior: No abnormal or bizarre behaviors Quality of speech: Normal speech, not pressured, not slurred Affect: Constricted affect slightly irritable Mood: Reported that she is feeling very depressed. Suicidal Ideation: Denied thoughts of suicide Homicidal Ideation: Denied thoughts of violence or homicide Hallucinations: She denied hallucinations Paranoid/Delusional Material: She denied feeling paranoid, there were no delusions during the interview Difficulties with thought organization: The patient was coherent, there was no thought disorder Insight: She showed good insight Judgment: She showed good judgment Orientation: She was alert and oriented to time, place, and person. Cognition: Minor difficulties with attention and concentration Memory Function: No deficits in short-term memory Estimate of intellectual functioning: Average Assets/Strengths Patient Identified Assets/Strengths: Patient is intelligent, unemployed, assertive Impression/Plan Impression and Plan: 42-year-old white female with long-standing history of bipolar disorder was admitted in a depressive phase with thoughts of suicide - Include all active medical diagnosis that require tx DSM 5 Diagnosis(es): Bipolar 1 disorder most recent episode depressed - Initial Tx Plan for Active Psych & Medical Conditions Treatment Plan: Inpatient psychiatric care with safety checks every 15 minutes Reduce Depakote to 250 g at bedtime, the patient reported that she was feeling very sedated on the higher dose of Depakote and she is not interested in Depakote because of the risk of weight gain Start lithium 150 mg 3 times daily Change Topamax to bedtime continue trazodone 100 mg at bedtime continue PRN's of's of Ativan as needed - Factors that would help patient function - in a less restrictive setting. Factors: Patient will be discharge if she continues to deny suicidal ideation and once we have a solid discharge plan
[2018-01-05 07:49] VITALS: BP 110/70
[2018-01-05 12:22] VITALS: BP 96/60
--- NOTE | 2018-01-05 12:49 | SOCIAL WORKER PROG NOTE PSYCH ---
Social Work Progress Note Progress Note Spoke with Rebeca from [facility]. Review is scheduled for 2:15pm tomorrow.
[2018-01-05 16:19] VITALS: BP 110/67
--- NOTE | 2018-01-05 16:41 | SOCIAL WORKER PROG NOTE PSYCH ---
Social Work Progress Note Progress Note When Nury Martinez LCSW and social Work manufacturing engineering intern went to meet Claudia today she was in her room. We introduced ourselves and asked if it would be a good time to meet? She agreed to meet so we went into the conference room. When asking how Claudia felt she reported feeling pretty low due to the change of time in taking her medications. She reported going to morning group and having an increase in her appetite saying that she ate both breakfast and lunch today. She has been in contact with mom and a few friends on the phone. When asked about the condition she was in prior to entering the hospital she said she was pretty manic for months. She indicated that she tried reaching out for help but felt the therapist was somewhat resistant to doing a phone session. She expressed that the therapist and doctor she was seeing was not helping her much and she was looking to meet with new therapist and a new psychiatrist. One trigger for steven that she mentioned was exercise and dieting. She felt disoriented in her current state and commented on hearing things such as everyone beeping at her on the road. She stated she is currently in a casual relationship, but still thinking about her ex and the support that he gave her. She expressed wanting to build a support network as one of her goals. She was contemplating how many people she should have visit to help pass time by. She was told that this was a decision she has to make and to consider who understands her condition and she trusts. The above was documented by Connor Huang (TASTE TESTER manufacturing engineering intern) and signed by Nury Martinez LCSW
[2018-01-05 20:08] VITALS: BP 129/70
[2018-01-06 07:57] VITALS: BP 107/64
--- NOTE | 2018-01-06 08:22 | CP SOUTH PROGRESS NOTE PSYCH ---
Psych (Inpt) Progress Note Progress Note Treatment team (JUAN, RN, OTR/L & Activities Therapist, Psychiatrist) discussed the Pt.'s progress, treatment plan, and aftercare plans. Vital Signs Date Time Temp Pulse B/P B/P 01/06 1221 59 102/62 01/06 0757 97.8 69 107/64 01/06 2008 97.5 56 129/70 Mental Status Examination: Calm and cooperative, Normal psychomotor activity, No abnormal or bizarre behaviors, Normal speech, not pressured, not slurred, Constricted affect slightly irritable, Reported that she is feeling very depressed. Denied thoughts of suicide, Denied thoughts of violence or homicide, She denied hallucinations, denied feeling paranoid, there were no delusions during the interview, The patient was coherent, there was no thought disorder, She showed good insight, good judgment. She was alert and oriented to time, place, and person. Minor difficulties with attention and concentration No deficits in short-term memory Assessment: 42-year-old white female with long-standing history of bipolar disorder was admitted in a depressive phase with thoughts of suicide Diagnosis(es): Bipolar 1 disorder most recent episode depressed Treatment Plan: Continue Depakote 250 mg at bedtime for 5 more nights Continue [place] 150 mg three times daily Reduce Topamax to 75 mg at bedtime because of cognitive signs of impaired attention/concentration and feeling as if "mind is blank" continue PRN's of's of Ativan as needed Depakote because of the risk of weight gain Start lithium 150 mg 3 times daily Change Topamax to bedtime continue trazodone 100 mg at bedtime continue PRN's of's of Ativan as needed
[2018-01-06 12:21] VITALS: BP 102/62
--- NOTE | 2018-01-06 14:17 | SOCIAL WORKER PROG NOTE PSYCH ---
Social Work Progress Note Progress Note Met with Claudia who reported not doing so well today. She reported multiple physical ailments that were causing her to feel uncomfortable ie: rash on face, UTI, possible yeast infection, and knee pain. She continues to talk about how she is lacking support and living alone right now is not great for her. She seems fearful of discharging to the same scenerio. I offered Crisis and Respite as an option, but she didn't seem interested. She had difficulty expressing what her idea of good support would be for her. She mentioned that maybe staying at her parent's home in [place] would be helpful for a week after discharge. She continues to talk about not having friends and not having a stable consistent boyfriend. We talked about where she could possibly meet people. She said she is someone that usually goes to the same places and she is feeling upset that she can't return to her gym. When asked more about that, she didn't want to get into the details. She would only offer that she feels she was actively manic and possibly psychotic and she felt embarrassed about things she said. Tried to explore her perception of the situation, but she didn't want to talk about it. As we talked she took long pauses to answer questions. I asked if she had alot on her mind? She said "no, actually my mind is kind of blank." She said she feels kind of "out of it." She typically gets like this for awhile after a manic episode. Denies SI today. Denies AH/VH. Feels overwhelmed about her aftercare plan. Talked about the benefits of doing an IOP for mental health and substance use. She seemed open to that idea. Called [facility] [phone] and spoke with wound care coordinator Rebeca. She authorized 4 units with review on 01/10. Review will be done live at 3:15pm.
[2018-01-06 16:19] VITALS: BP 116/66
[2018-01-06 19:56] VITALS: BP 100/71
[2018-01-07 08:14] VITALS: BP 108/74
--- NOTE | 2018-01-07 15:28 | CP SOUTH PROGRESS NOTE PSYCH ---
Psych (Inpt) Progress Note Progress Note Include the following elements, when applicable: Involvement in the active treatment of the patient with behavioral observations of the patient and the patient's response to the treatment. Review of the ongoing treatment process in the context of the treatment plan. Indication of how multi-disciplinary staff members are carrying out the treatment plan. Plans for future interventions and recommendations for revision of the treatment plan. Liaison with other physicians/providers. Progress Note: Chart reviewed. Progress discussed with nursing staff. Interviewed patient this morning. Patient reports "feeling sometimes like my mind is racing". Describes numerous concerns/stressors including where she will live and work. Moderately disorganized. Asks for haldol to help with racing thoughts. Reports vague SI without plan or intent. Denies HI. Vitals and labs reviewed. Findings are: vitals wnl. No new labs today. Mental status exam: Disheveled CF, +pmotor retardation, speech monotonous mood "not good" affect constricted mildly labile, TP circumstantial, content with vague SI without plan or intent, denies percept distrubance, cog grossly intact, i/j limited Assessment and plan: presents as depressed and disorganized/pre-occupied. Will add 2 mg haldol PRN for her to utilize to help with racing thoughts. Otherwise, continue current management as per primary team.
[2018-01-07 15:59] VITALS: BP 124/53
[2018-01-07 19:57] VITALS: BP 116/88
[2018-01-08 08:36] VITALS: BP 117/77
--- NOTE | 2018-01-08 11:20 | CP SOUTH PROGRESS NOTE PSYCH ---
Psych (Inpt) Progress Note Progress Note Include the following elements, when applicable: Involvement in the active treatment of the patient with behavioral observations of the patient and the patient's response to the treatment. Review of the ongoing treatment process in the context of the treatment plan. Indication of how multi-disciplinary staff members are carrying out the treatment plan. Plans for future interventions and recommendations for revision of the treatment plan. Liaison with other physicians/providers. Progress Note: Chart reviewed. Progress discussed with nursing staff. Interviewed patient this morning. She says "I feel a bit better today". REports improved mood and reduces rumination. Says small dose of haldol and ativan yesterday evening was helpful. Denies SI/HI. Still mildly disorganized but better than yesterday. Vitals and labs reviewed. Findings are: vitals wnl. No new labs today. Mental status exam: Mildly disheveled CF, +pmotor retardation, speech monotonous mood "better than yesterday" affect constricted mildly labile, TP mildly circumstantial, content with vague SI without plan or intent, denies percept distrubance, cog grossly intact, i/j limited Assessment and plan: Some improvement in mood, racing thoughts, and organization since yesterday. Continue to offer low dose haldol to help with organization. Otherwise, continue current management as per primary team.
[2018-01-08 12:28] VITALS: BP 117/81
[2018-01-08 15:43] VITALS: BP 121/59
[2018-01-08 20:02] VITALS: BP 114/69
--- NOTE | 2018-01-09 07:57 | CP SOUTH PROGRESS NOTE PSYCH ---
Psych (Inpt) Progress Note Progress Note Vital Signs Date Time Temp Pulse B/P B/P Pulse O2 Flow FiO2 01/09 0803 98.8 94 113/66 01/08 2002 97.9 67 114/69 01/08 1543 61 121/59 01/08 1228 59 117/81 Mental status exam: The patient was alert and oriented to time, place, and person. The patient on her own accord asked for an increase in her dose of Haldol. The patient seemed to be internally preoccupied and as if there is something on her mind but when queried, she responds "I feel that my mind is blank." The staff noted that her during acupuncture the patient was responding to internal stimuli, laughing to himself it seemed inappropriately. There were disliked psychomotor retardation and is slightly delayed responses It seems to be constricted and blunted labile, I reviewed Dr. Clark's notes from the weekend and it seemed that he noticed some Center circumstantial thinking and vague thoughts of suicide without specific intent or plan Dr. Clark also noted that the patient was "mildly disorganized "" Assessment: 42-year-old white female with long-standing history of bipolar disorder was admitted in a depressive phase with thoughts of suicide Plan: Add Haldol 5 mg at bedtime on a regular schedule Change lithium to 300 mg twice daily Discontinue Depakote Reduce trazodone to 50 g at bedtime Add Ativan 1 mg at bedtime Current Medications Medication Dose Route Stop Time Status Admin Acetaminophen 650 MG Q4P PRN 01/06 1130 AC 01/09 PO 1453 Albuterol Sulfate 2 PUF Q4-6 PRN PRN 01/02 2330 AC INH Budesonide/ 2 PUF BID 01/03 0900 AC 01/09 Formoterol Fumarate INH 0824 Divalproex Sodium 250 MG QPM 01/05 2100 DC 01/08 PO 2111 Docusate Sodium 100 MG TID 01/09 1400 AC 01/09 PO 1449 Docusate Sodium 100 MG BID 01/08 1400 DC 01/09 PO 0825 Haloperidol 5 MG AT BEDTIME 01/09 2100 AC PO Haloperidol 2 MG Q6P PRN 01/07 1315 AC 01/09 PO 0141 Hydrocortisone 1 ZEKE BID 01/06 1006 AC 01/08 EXT 2111 Levothyroxine Sodium 0.125 MG DAILY AC 01/09 0700 AC 01/09 PO 06 [place] Carbonate 300 MG 799,01/09 AC PO [place] Carbonate 150 MG TID 01/05 1408 DC 01/09 PO 0825 Lorazepam 1 MG AT BEDTIME 01/09 2100 AC PO Lorazepam 1 MG Q4 HRS NEEDED PRN 01/04 1315 AC 01/09 PO 0141 Polyethylene Glycol 17 GM DAILY 01/09 1259 AC 01/09 PO 1449 Sertraline HCl 100 MG DAILY 01/06 09 AC 01/09 PO 08 Topiramate 50 MG 01/09 AC PO Topiramate 75 MG 01/06 DC 01/08 PO 211 Trazodone HCl 50 MG QPM 01/09 2100 AC PO Trazodone HCl 100 MG QPM 01/03 2100 DC 01/08 PO 211 Trimethoprim/ 1 TAB BID 01/06 1006 AC 01/09 Sulfamethoxazole PO 08
[2018-01-09 08:03] VITALS: BP 113/66
[2018-01-09 12:16] VITALS: BP 124/76
--- NOTE | 2018-01-09 12:49 | SOCIAL WORKER PROG NOTE PSYCH ---
Social Work Progress Note Progress Note Asked Claudia if her Father visited and if it is okay to set up a family meeting. She said he had come and she would be interested in having the family meeting tomorrow. She asked that I call Dad at [phone]. Called Mr. Marie and he will come in tomorrow at 3:30pm. He told me Claudia seemed a little sedated yesterday and a little "out of it." He said it usually takes her awhile to get back to baseline. Reported he has been through this many times. I asked how long he planned to be in [place]? He said he was going to see how things go with Claudia. I asked if he thought Claudia would be returning to [place] with him for a week or so? He said he wasn't sure yet and he knew this was something Claudia was possibly interested in. He said Claudia and her Mother don' t get along that well when she is back to normal. He said we would talk more tomorrow. Claudia was in bed after lunch. Prompted her to get up to meet today. She reported feeling tired. Reports med changes that continue to happen with psychiatric medications. She reports being in a depression and feels it's going to take her some time to feel better. She reports that she is going to have a few visitors tonight (friends/ Father). She hasn't commited to a d/c plan at this point, because she doesn't know what family is going to say about her coming to [place]. She wants me to look into [facility]. She may also be interested in IOP 5-8. She continues to go through periods of racing thoughts and other times when her mind feels blank. I asked her how would she know she was back to baseline? She said "I'm happy go sheryl." She thinks that she has been ruminating about certain topics too much. She wonders if she has an OCD quality to her illness. She tends to stay stuck on one topic that she thinks and thinks about. The examples she gave seemed to be relational in nature. Asked her to think about the emotion attached. She had difficulty discussing things more in detail. I find that when I ask her a self-reflective question she has a hard time answering it and says she doesn't want to get into it. Denies SI today. Seems forward thinking in terms of worrying about financial responsibilities when her parents can no longer assist her.
[2018-01-09 15:51] VITALS: BP 108/71
[2018-01-09 19:29] VITALS: BP 129/72
[2018-01-10 07:41] VITALS: BP 113/63
--- NOTE | 2018-01-10 08:23 | SOCIAL WORKER PROG NOTE PSYCH ---
Social Work Progress Note Progress Note Claudia was given information on [facility] per request. I also informed her that [facility] was absorbed by [facility] and that her choices for IOP would be [facility] or [place] which would be the closest for her. I offered that a staff from [facility] come and meet her on the unit. She was very interested in that. Called [facility] [phone] to do a live review. Today is a covered day, I told the career coordinator she may d/c tomorrow. She said I could call back tomorrow to let her know if he is leaving or needs to review. We have a time set aside for 10:30am tomorrow. Family meeting held with Claudia and her Father. Dr. Faith was also in attendance. Claudia reported adjusting to her medication changes. Dr. Faith is discontinuing the Ativan today due to her being on the increased dose of [place] at night and being on Trazadone. Claudia advocated for 100mg of Trazadone for sleep in fear that she wouldn't be able to sleep. Dad didn't feel it would be helpful for Claudia to come to [facility] initially, as she and her Mother argue. He suggested she start IOP and see how she is doing and then possibly come for a visit. Claudia was a little disappointed, but didn't put up an argument or over react. Dad will stay for an additional week or so to provide support to her here in [place]. Claudia is thinking of taking some time off of work before going back. Dad feels that she is making progress and that he's seen a change in her since this weekend. Claudia was smiling more at the meeting today and looked much happier than in previous conversations. Denies any intent to harm herself. Dad confirmed that she has never attempted suicide. Claudia feels she is ready to d/c tomorrow with the intent to go to an IOP intake tomorrow. Dad appeared to be in agreement with that plan. Stated he would pick her up after the intake. Dad shared that Claudia has the option of living near them in [place] if she wanted to find an apartment there. Claudia is hesitant, because she thinks it would be difficult to find friends. Her lease is up in February, so she has some time to consider what may be best for her. Intake scheduled at 1:15pm tomorrow for [facility].
[2018-01-10 12:31] VITALS: BP 117/75
--- NOTE | 2018-01-10 14:11 | CP SOUTH PROGRESS NOTE PSYCH ---
Psych (Inpt) Progress Note Progress Note Vital Signs Date Time Temp Pulse B/P 01/10 1231 57 117/75 01/10 0934 98.0 01/10 0741 98.0 60 113/63 Treatment team (JUAN, RN, OTR/L & Activities Therapist, Psychiatrist) discussed the Pt.'s progress, treatment plan, and aftercare plans. Mental status exam: The patient was alert and oriented to time, place, and person. More animated today/less internally preoccupied no signs of responding to internal stimuli, normal psychomotor activity less circumstantial thinking no thoughts of suicide Assessment: 42-year-old white female with long-standing history of bipolar disorder was admitted in a depressive phase with thoughts of suicide No thoughts of suicide Plan: Change lithium to 150 mg QAM and 300 mg QHS Continue Haldol 5 mg at bedtime PO Increase trazodone to 100 mg at bedtime D/C Ativan Haloperidol 2 MG Q6P PRN Levothyroxine Sodium 0.125 MG DAILY AC Sertraline HCl 100 MG DAILY Topiramate 50 MG 2100 Sertraline HCl 100 MG DAILY Topiramate 50 MG 2100 Formoterol Fumarate INH 0824 Divalproex Sodium 250 MG QPM 01/05 2100 DC 01/08 PO 2111 Docusate Sodium 100 MG TID 01/09 1400 AC 01/09 PO 1449 Docusate Sodium 100 MG BID 01/08 1400 DC 01/09 PO 0825 Haloperidol 5 MG AT BEDTIME 01/09 2100 AC PO Haloperidol 2 MG Q6P PRN 01/07 1315 AC 01/09 PO 0141 Hydrocortisone 1 ZEKE BID 01/06 1006 AC 01/08 EXT 2111 Levothyroxine Sodium 0.125 MG DAILY AC 01/09 0700 AC 01/09 PO 0627 [place] Carbonate 300 MG 0800,01/09 2000 AC PO [place] Carbonate 150 MG TID 01/05 1408 DC 01/09 PO 0825 Lorazepam 1 MG AT BEDTIME 01/09 2100 AC PO Lorazepam 1 MG Q4 HRS NEEDED PRN 01/04 1315 AC 01/09 PO 0141 Polyethylene Glycol 17 GM DAILY 01/09 1259 AC 01/09 PO 1449 Sertraline HCl 100 MG DAILY 01/06 0900 AC 01/09 PO 0825 Topiramate 50 MG 2100 01/09 2100 AC PO Topiramate 75 MG 2100 01/06 2100 DC 01/08 PO 2111 Trazodone HCl 50 MG QPM 01/09 2100 AC PO Trazodone HCl 100 MG QPM 01/03 2100 DC 01/08 PO 2110 Trimethoprim/ 1 TAB BID 01/06 1006 AC 01/09 Sulfamethoxazole PO 08 DICTATED BY: Leander Faith MD DATE/TIME DICTATED:01/09/18 / 0756 MEDICAL REFERRAL COORDINATOR:ESTEPHANIA
[2018-01-10 16:18] VITALS: BP 108/72
[2018-01-10 19:49] VITALS: BP 123/77
[2018-01-11 07:56] VITALS: BP 112/70
[2018-01-11] MEDS ORDERED: TOPAMAX50 M1 PO (09:05)
[2018-01-11] MEDS ORDERED: HALOPERIDOL5 MG PO (09:09)
[2018-01-11] MEDS ORDERED: TRAZODONE HCL100 M1 PO (09:09)
[2018-01-11] MEDS ORDERED: LITHIUM CARBON150 M1 PO (09:09)
[2018-01-11] MEDS ORDERED: SERTRALINE HCL50 MG PO (09:09)
--- NOTE | 2018-01-11 09:12 | Patient Discharge Instructions ---
Psych Discharge Inst General Discharge Information Reason for Admission: was thinking of jumping off balcony Psy Discharge Primary Diag+ Bipolar I Psy Discharge Secondary Diag+ Alcohol Use Disorder Summary Tests/Major Procedures Lab BUN 20 mg/dL H 01/02/181901 BUN/Creatinine Ratio 22.2 % 01/02/181901 Creatinine 0.9 mg/dL 01/02/181901 Estimated GFR > 60 ml/min 01/02/181901 Studies Pending at DC: None, given lab slip for outpatient labs Patient Instructions Contact Information Your Psychiatrist on [facility] was Vianney RODRIGUEZ,Leander * If you are experiencing an emergency related to this hospitalization, please call [phone] to contact the treating psychiatrist or the psychiatrist-on- call. * To Request a copy of your medical records, please contact the Medical Records Department at [phone]. * To request results of studies pending at the time of discharge, please call [phone]. * Continue your Medications until directed to stop by your Healthcare provider. General Medication Information Please continue to take your new medications and your continued home medications , unless otherwise indicated on your discharge medication list, or unless directed by your MD or TOLL LINE INSPECTOR to stop them. Special Instructions Diet Regular Activity Normal - Tobacco Use Treatment Offered Post DC Medications Offered: Not Applicable Post DC Tobacco Treatment Plan: Not Applicable - EtOH/Drug Use D/O Treatment Offered Post DC Medications Offered: Med Not Indicated for D/O Post DC EtOH/SubAbuse [place] Plan: [place] SubAbuse/Dual IOP Metabolic Screening Patient on a neuroleptic(s) . Enter below results for Hemoglobin A1C, and lipid panel if obtained during the last 365 days. BMI: 31.600 Blood Pressure: 121/74 Laboratory Results From [facility] (If applicable): Pt. given Lab slip for Metabolic Profile and [place] monitoring Advance Directives Does the Patient have Medical Advance Directives No/Refused further info Does Pt have Psychiatric Advance Directives? No/Refused further info Does Patient have a Designated Surrogate Decision Maker: No Information About Psychiatric Advance Directives Provided? Refused Discharge Plan Post Hospital Treatment Plan: [facility]-Dual IOP-Evening
--- NOTE | 2018-01-11 09:12 | SOCIAL WORKER PROG NOTE PSYCH ---
Social Work Progress Note Progress Note Dr. Faith and I met with Claudia this morning. She reported not sleeping well last night. Continues to experience racing thoughts. She seemed ambivalent about discharging today vs. staying an additional day. She was wondering if the Zoloft could be contributing to this experience. Dr. Faith told her he would reduce the Zoloft to 50mg today and her [place] dose would be 450mg tonight. We talked about her staying an additional day if she really needed to, but ultimately she decided she would like to go home as the environment here may be contributing to her symptoms. Complaints about the bed and other peers getting to her. She was given Dr. Faith's card in case there are any issues. There are no current safety concerns that would delay her discharge. She is not suicidal and she didn't feel that there would be any safety risks attached to her current symptoms. She is a little anxious about returning home. Fearful that her symptoms will re-emerge. I told her that she has IOP to work with her. She plans on going to her 1:15 intake today. She is going to ask her Father to come to the unit at 1pm.
--- NOTE | 2018-01-11 10:02 | SOCIAL WORKER PROG NOTE PSYCH ---
Social Work Progress Note Progress Note Faxed Transfer Summary to [facility]. Fax cinfurnation 01/11/18 at 10:15am
--- NOTE | 2018-01-11 10:28 | CP SOUTH PROGRESS NOTE PSYCH ---
Psych (Inpt) Progress Note Progress Note Treatment team (JUAN, RN, OTR/L & Activities Therapist, Psychiatrist) discussed the Pt.'s progress, treatment plan, and aftercare plans. Patient was seen jointly with Nury Martinez LCSW Laboratory Tests 01/10 Urines Urine Color (YEL,AMB,STR) YEL Urine Clarity (CLEAR) CLEAR Urine pH (5.0 - 8.0) 6.0 Ur Specific [place] (1.001 - 1.035) 1.020 Urine Protein (NEG,<30 MG/DL) NEG Urine Ketones (NEG) NEG Urine Nitrite (NEG) NEG Urine Bilirubin (NEG) NEG Urine Urobilinogen (0.1 - 1.0 EU/dl) 0.2 Ur Leukocyte Esterase (NEG) NEG Ur Microscopic EXAM NOT REQUIRED Urine Hemoglobin (NEG) NEG Urine Glucose (N MG/DL) NEG Vital Signs Date Time Temp Pulse Resp B/P 01/11 1203 57 121/74 01/11 0756 97.5 69 112/70 01/10 1949 97.8 68 123/77 01/10 1618 65 108/72 Mental status exam: The patient was alert and oriented to time, place, and person. She was slight smiling more often and appeared animated today, she was less internally preoccupied no signs of responding to internal stimuli, normal psychomotor activity. She did still complain that she had extreme difficulty sleeping last night and did not fall asleep until the arts and sciences dean hours closer to 5:00 this morning, she reported that she was still having racing thoughts. Was not very specific about the thoughts despite being asked several times by Nury Martinez LCSW less circumstantial thinking no thoughts of suicide Assessment: Claudia is a 42-year-old white female with long-standing history of bipolar disorder was admitted in a depressive phase with thoughts of suicide. No thoughts of suicide Diagnoses: F31.5: Bipolar I, current episode depressed, with psychotic features, with anxious distress, moderate-severe Treatment Plan: D/C Home today. Lab slip for blood work for lithium and metabolic panel (Fasting) Letter to work, for 3 weeks completely off, to be re-evaluated in IOP
[2018-01-11 12:03] VITALS: BP 121/74
--- NOTE | 2018-01-11 15:17 | SOCIAL WORKER PROG NOTE PSYCH ---
Social Work Progress Note Faxed Referral(s) Referred To: [facility] Transition of Care Documents sent: Health Summary Faxed to: [facility] Fax #: [phone] Faxed by: Nury Martinez Date faxed: 01/11/18 Time Faxed: [phone]
== END 2018-01-11 13:10 | DRG 885 ==
LOC: ERH 18:25 → ERHI 01-04 11:12 → CP SOUTH 01-04 11:12 → ENTRNSPT 01-04 13:38 → EDTRNSPTSTS 01-04 13:44 → EDTRNSPT 01-04 13:44 → CP SOUTH 01-04 13:50 → CMPTRNSPT 01-04 13:58 → ENRESERV 01-04 23:59 → CP SOUTH 01-11 13:10
PROVIDERS: Physician Assistant
DX: F31.9 Bipolar disorder, unspecified (principal); F10.10 Alcohol abuse, uncomplicated
CPT/HCPCS: 80307; 81001; 81003; 81025; 87086; 93005; 93010; G0463; G0480; J3490